=== PATIENT | male | born 1990 | race African-American/Black ===

== ENCOUNTER 2023-04-26 13:26 | Emergency (ER) | payer BC ==
[2023-04-26 15:23] LABS: SARS-CoV-2 NAA Rapid Test Not Detected (NotDetected)
[2023-04-26] MEDS ORDERED: Ketorolac Tromethamine 30 MG (1 mL) VIAL ONE (15:23)
== END 2023-04-26 16:10 | disposition home or self-care (01) ==
LOC: ERS 13:26
DX: J18.9 Pneumonia, unspecified organism (principal)
CPT/HCPCS: 71045; 96372; J1885

== ENCOUNTER 2024-12-19 18:18 | Emergency (ER) | payer BC ==
[2024-12-19] MEDS ORDERED: Ketorolac Tromethamine 30 MG (1 mL) VIAL ONE (19:46)
== END 2024-12-19 20:11 | disposition home or self-care (01) ==
LOC: ERS 18:18
DX: S63.92XA Sprain of unspecified part of left wrist and hand, initial encounter (principal); S63.91XA Sprain of unspecified part of right wrist and hand, initial encounter; X50.0XXA Overexertion from strenuous movement or load, initial encounter
CPT/HCPCS: 96372; 99282; J1885